=== PATIENT | male | born 1950 | race Caucasian/White ===

== ENCOUNTER 2017-12-07 23:52 | Emergency (ER) | payer SELFPAY ==
[~2017-12-07 23:52] MED LIST: ALEVE220 MG PO; ASPIR-LOW81 MG PO; ATORVASTATIN CA80 MG PO; DAILY VITE1 EAC1 PO; LISINOPRIL20 MG PO; LITE COAT ASPI325 M1 PO; LO-DOSE ASPIRIN81 M2 PO; LOTRIMIN AF24 GM TP; METOPROLOL TART25 MG PO; PROSTATE HEALT1 EAC1 PO
== END 2017-12-08 00:11 | disposition left against medical advice (07) ==
LOC: EME 23:52
DX: R11.10 Vomiting, unspecified (principal); R10.9 Unspecified abdominal pain; Z53.21 Procedure and treatment not carried out due to patient leaving prior to being seen by health care provider